=== PATIENT | male | born 1960 | race Caucasian/White ===

== ENCOUNTER 2024-01-14 19:10 | Inpatient (IN) | payer MEDICARE ==
[~2024-01-14] VITALS: Ht 165.1 cm; Wt 89.4 kg
[2024-01-14 19:11] VITALS: BP 148/78; PULSE 130; RESP 22; TEMP 98; O2SAT 96
[2024-01-14 19:30] VITALS: O2SAT 96
[2024-01-14] MEDS ORDERED: cefTRIAXone 1,000 MG VIAL ONE (19:37)
[2024-01-14] MEDS: cefTRIAXone 1,000 MG in DEXT 5% MINI-BAG PLUS 50 ML IV ONE (19:43)
[2024-01-14] MEDS: NACL 0.9% 2,000 ML IV SCH (19:43)
[2024-01-14 20:07] LABS: BASOPHILS % (AUTO) 0.2 % (0.0-2.0); EOSINOPHILS % (AUTO) 0.1 % (0.0-4.0); HEMATOCRIT 36.1 % (36-52); HEMOGLOBIN 12.7 g/dL (12.0-18.0); LYMPHOCYTES # (AUTO) 1.1 K/uL (2.0-11.5); LYMPHOCYTES % (AUTO) 10.3 % (20.5-51.1); MEAN CORPUSCULAR HEMOGLOBIN 29 pg (27-31); MEAN CORPUSCULAR HGB CONC 35 g/dL (33-37); MONOCYTES # (AUTO) 1.2 K/uL (0.8-1.0); MONOCYTES % (AUTO) 11.1 % (1.7-9.3); NEUTROPHILS # (AUTO) 8.3 K/uL (1.8-7.7); NEUTROPHILS % (AUTO) 78.3 % (42.2-75.2); PLATELET COUNT (AUTO) 112 K/uL (140-450); RED CELL DISTRIBUTION WIDTH 13.7 % (11.6-13.7); WHITE BLOOD COUNT (AUTO) 10.6 K/uL (4.8-10.8)
[2024-01-14 20:08] LABS: BILIRUBIN,URINE NEGATIVE (NEGATIVE); BLOOD, URINE 2+ (NEGATIVE); COLOR,URINE YELLOW (YELLOW); LEUKOCYTE ESTERASE ,URINE TRACE (NEGATIVE); NITRITE, URINE NEGATIVE (NEGATIVE); PROTEIN,URINE 1+ (NEGATIVE); UGLUCOSE NEGATIVE (NEGATIVE); UROBILINOGEN,URINE 0.2 EU/dL (0.2 - 1)
[2024-01-14 20:11] LABS: APPEARANCE,URINE SLIGHTLY HAZY (CLEAR)
[2024-01-14 20:18] LABS: WBC,URINE 0-5 /HPF (0-5)
[2024-01-14 20:19] LABS: BACTERIA,URINE 1+ /HPF (None Seen); MUCUS,URINE None Seen /LPF (None Seen); SQUAMOUS EPITHELIAL CELL,UR 0-3 (FEW) /LPF (0-3 (FEW))
[2024-01-14 20:25] LABS: FLU A ANTIGEN negative (NEGATIVE); FLU B ANTIGEN negative (NEGATIVE)
[2024-01-14 20:28] LABS: LACTIC ACID 0.8 mmol/L (0.4-2.0)
[2024-01-14 20:59] LABS: ANION GAP 14.2 (8-16); CALCIUM 7.5 mg/dL (8.5-10.1); CARBON DIOXIDE 19.8 mmol/L (21-32); CREATININE 1.2 mg/dL (0.6-1.3)
[2024-01-14 21:49] VITALS: O2SAT 96
[2024-01-14 23:49] VITALS: O2SAT 96
[2024-01-15] VITALS (10 sets, daily range): BP systolic 124–146; BP diastolic 69–93; PULSE 88–137; RESP 18–20; TEMP 97.1–98.5; O2SAT 95–100
[2024-01-15] MEDS: ALBUTEROL 0.083% 2.5 MG/3 ML NEBU INH ONE (00:46)
[2024-01-15] MEDS: ALBUTEROL SULFATE/IPRATROPIU 3 ML SOL IH ONE (00:46)
[2024-01-15] MEDS ORDERED: HYDROcodone/APAP 5/325 MG 1 TAB TAB PO PRN (01:40)
[2024-01-15] MEDS ORDERED: ACETAMINOPHEN 325 MG TAB PO PRN (01:40)
[2024-01-15] MEDS ORDERED: MORPHINE SULFATE 2 MG/ML SYR IVP PRN (01:40)
[2024-01-15] MEDS ORDERED: AZITHROMYCIN 500 MG INJ VIAL IV ONE (02:12)
[2024-01-15] MEDS: AZITHROMYCIN 500 MG in DEXTROSE 5% 250 ML IV SCH (02:18)
[2024-01-15] MEDS: VERAPAMIL 5 MG/2 ML VIAL IVP ONE (02:29)
[2024-01-15 06:11] LABS: ANION GAP 14.6 (8-16); CREATININE 1.1 mg/dL (0.6-1.3); POTASSIUM 3.6 mmol/L (3.5-5.1)
[2024-01-15] MEDS ORDERED: NACL 3% 500 ML IV ONE (06:35)
[2024-01-15] MEDS: NACL 3% 500 ML IV ONE (07:08)
[2024-01-15] MEDS ORDERED: NACL 3% 500 ML IV SCH ×3 (08:10→21:00)
[2024-01-15 08:28] LABS: BASOPHILS % (AUTO) 0.4 % (0.0-2.0); EOSINOPHILS % (AUTO) 0.1 % (0.0-4.0); HEMATOCRIT 38.9 % (36-52); HEMOGLOBIN 13.7 g/dL (12.0-18.0); LYMPHOCYTES # (AUTO) 0.9 K/uL (2.0-11.5); MEAN CORPUSCULAR HEMOGLOBIN 29 pg (27-31); MEAN CORPUSCULAR HGB CONC 35 g/dL (33-37); MEAN CORPUSCULAR VOLUME 82.3 fL (80-94); MONOCYTES # (AUTO) 1.3 K/uL (0.8-1.0); NEUTROPHILS # (AUTO) 7.9 K/uL (1.8-7.7); NEUTROPHILS % (AUTO) 77.5 % (42.2-75.2); PLATELET COUNT (AUTO) 127 K/uL (140-450); RED BLOOD CELL COUNT(AUTO) 4.72 MIL/uL (4.20-6.10); RED CELL DISTRIBUTION WIDTH 13.2 % (11.6-13.7); WHITE BLOOD COUNT (AUTO) 10.2 K/uL (4.8-10.8)
[2024-01-15 08:42] LABS: CALCIUM 7.4 mg/dL (8.5-10.1); CARBON DIOXIDE 20.9 mmol/L (21-32); CREATININE 1.1 mg/dL (0.6-1.3); POTASSIUM 3.9 mmol/L (3.5-5.1)
[2024-01-15] MEDS: METOPROLOL 5 MG/5 ML VIAL IV SCH (09:40)
[2024-01-15 12:26] LABS: ANION GAP 11.9 (8-16); CALCIUM 7.3 mg/dL (8.5-10.1); CARBON DIOXIDE 21.8 mmol/L (21-32); CREATININE 1.1 mg/dL (0.6-1.3); POTASSIUM 3.7 mmol/L (3.5-5.1)
[2024-01-15] MEDS: METOPROLOL 25 MG TAB PO SCH ×2 (13:52→20:19)
[2024-01-15] MEDS: FUROSEMIDE 40 MG/4 ML VIAL IVP SCH (13:52)
[2024-01-15] MEDS: DIGOXIN 0.25 MG/ML AMP IV SCH ×2 (13:55→18:12)
[2024-01-15 16:43] LABS: ANION GAP 13.5 (8-16); CALCIUM 8.1 mg/dL (8.5-10.1); CARBON DIOXIDE 23.3 mmol/L (21-32); CREATININE 1.1 mg/dL (0.6-1.3); POTASSIUM 3.8 mmol/L (3.5-5.1)
[2024-01-15 20:16] LABS: ANION GAP 14.3 (8-16); CALCIUM 7.9 mg/dL (8.5-10.1); CARBON DIOXIDE 23.3 mmol/L (21-32); CREATININE 1.2 mg/dL (0.6-1.3); POTASSIUM 3.6 mmol/L (3.5-5.1)
[2024-01-15] MEDS: APIXABAN 2.5 MG TAB PO SCH (20:18)
[2024-01-16] VITALS (10 sets, daily range): BP systolic 104–127; BP diastolic 72–84; PULSE 53–104; RESP 17–19; TEMP 97.1–97.6; O2SAT 97–99
[2024-01-16] MEDS: DIGOXIN 0.25 MG/ML AMP IV SCH (00:13)
[2024-01-16 00:28] LABS: ANION GAP 12.5 (8-16); CALCIUM 7.5 mg/dL (8.5-10.1); CARBON DIOXIDE 23.8 mmol/L (21-32); CREATININE 1.1 mg/dL (0.6-1.3); POTASSIUM 3.3 mmol/L (3.5-5.1)
[2024-01-16 04:13] LABS: BASOPHILS % (AUTO) 0.5 % (0.0-2.0); EOSINOPHILS # (AUTO) 0.1 K/uL (0-0.4); EOSINOPHILS % (AUTO) 1.8 % (0.0-4.0); HEMATOCRIT 37.9 % (36-52); HEMOGLOBIN 13.3 g/dL (12.0-18.0); LYMPHOCYTES # (AUTO) 1.4 K/uL (2.0-11.5); LYMPHOCYTES % (AUTO) 19.9 % (20.5-51.1); MEAN CORPUSCULAR HEMOGLOBIN 29 pg (27-31); MEAN CORPUSCULAR HGB CONC 35 g/dL (33-37); MEAN CORPUSCULAR VOLUME 82.2 fL (80-94); MONOCYTES # (AUTO) 1.5 K/uL (0.8-1.0); NEUTROPHILS % (AUTO) 56.9 % (42.2-75.2); PLATELET COUNT (AUTO) 120 K/uL (140-450); RED BLOOD CELL COUNT(AUTO) 4.61 MIL/uL (4.20-6.10); RED CELL DISTRIBUTION WIDTH 13.6 % (11.6-13.7); WHITE BLOOD COUNT (AUTO) 7.1 K/uL (4.8-10.8)
[2024-01-16 04:30] LABS: ANION GAP 8.3 (8-16); CALCIUM 7.8 mg/dL (8.5-10.1); CARBON DIOXIDE 26.3 mmol/L (21-32); CREATININE 1.1 mg/dL (0.6-1.3); POTASSIUM 3.6 mmol/L (3.5-5.1)
[2024-01-16 04:41] LABS: MAGNESIUM 1.7 mg/dL (1.8-2.4); PHOSPHORUS 3.4 mg/dL (2.5-4.9)
[2024-01-16 04:53] LABS: MONOCYTES % (AUTO) 20.9 % (1.7-9.3)
[2024-01-16 09:01] LABS: ANION GAP 13.2 (8-16); CALCIUM 7.9 mg/dL (8.5-10.1); CARBON DIOXIDE 23.4 mmol/L (21-32); CREATININE 1.1 mg/dL (0.6-1.3); POTASSIUM 3.6 mmol/L (3.5-5.1)
[2024-01-16 12:29] LABS: ANION GAP 11.2 (8-16); CALCIUM 7.8 mg/dL (8.5-10.1); CARBON DIOXIDE 26.2 mmol/L (21-32); CREATININE 1.1 mg/dL (0.6-1.3); POTASSIUM 3.4 mmol/L (3.5-5.1)
[2024-01-16] MEDS: MAGNESIUM OXIDE 400 MG TAB PO PRN (13:47)
[2024-01-16 17:03] LABS: ANION GAP 10.9 (8-16); CALCIUM 7.8 mg/dL (8.5-10.1); CARBON DIOXIDE 25.6 mmol/L (21-32); CREATININE 1.2 mg/dL (0.6-1.3); POTASSIUM 3.5 mmol/L (3.5-5.1)
[2024-01-16] MEDS: DIGOXIN 0.25 MG TAB PO SCH (17:34)
[2024-01-16] MEDS: METOPROLOL 50 MG TAB PO SCH (21:00)
[2024-01-16 21:14] LABS: ANION GAP 11.3 (8-16); CALCIUM 7.9 mg/dL (8.5-10.1); CARBON DIOXIDE 25.2 mmol/L (21-32); CREATININE 1.2 mg/dL (0.6-1.3); POTASSIUM 3.5 mmol/L (3.5-5.1)
[2024-01-17] VITALS (11 sets, daily range): BP systolic 107–126; BP diastolic 68–82; PULSE 68–102; RESP 18–20; TEMP 97–97.7; O2SAT 97–99
[2024-01-17 06:48] LABS: HEMOGLOBIN 12.7 g/dL (12.0-18.0); MEAN CORPUSCULAR HEMOGLOBIN 29 pg (27-31); MEAN CORPUSCULAR HGB CONC 35 g/dL (33-37); MEAN CORPUSCULAR VOLUME 82.1 fL (80-94); PLATELET COUNT (AUTO) 149 K/uL (140-450); RED BLOOD CELL COUNT(AUTO) 4.39 MIL/uL (4.20-6.10); RED CELL DISTRIBUTION WIDTH 13.9 % (11.6-13.7)
[2024-01-17 07:04] LABS: ANION GAP 9.8 (8-16); CALCIUM 7.9 mg/dL (8.5-10.1); CARBON DIOXIDE 28.5 mmol/L (21-32); CREATININE 1.1 mg/dL (0.6-1.3); POTASSIUM 3.3 mmol/L (3.5-5.1)
[2024-01-17 08:25] LABS: LYMPHOCYTES % (MANUAL) 22 % (20-46)
[2024-01-17 08:26] LABS: EOSINOPHILS % (MANUAL) 8 % (0-4); MONOCYTES % (MANUAL) 20 % (5-12)
[2024-01-17 08:27] LABS: PLATELET ESTIMATE ADEQUATE
[2024-01-17 08:28] LABS: PLATELET COUNT,MANUAL 149 K/uL (150-450)
[2024-01-17] MEDS: POTASSIUM CHLORIDE 10 MEQ TABER PO PRN (09:25)
[2024-01-17] MEDS: DIGOXIN 0.25 MG TAB PO SCH (09:26)
[2024-01-17] MEDS ORDERED: POTASSIUM CHLORIDE 10 MEQ TABER PO ONE (09:35)
[2024-01-17] MEDS: methIMAzole 5 MG TAB PO SCH (11:50)
[2024-01-18] VITALS: BP 121/71; PULSE 65; PULSE 71; RESP 18; TEMP 96.9; O2SAT 97
[2024-01-18 04:00] VITALS: BP 122/73; PULSE 72; PULSE 82; RESP 18; TEMP 97.2; O2SAT 98
[2024-01-18 07:00] LABS: ANION GAP 9.5 (8-16); CALCIUM 8.3 mg/dL (8.5-10.1); CARBON DIOXIDE 29.3 mmol/L (21-32); POTASSIUM 3.8 mmol/L (3.5-5.1)
[2024-01-18 08:00] VITALS: BP 127/77; PULSE 76; PULSE 79; RESP 17; TEMP 97.4; O2SAT 97
[2024-01-18] MEDS ORDERED: TAP5 PO ×2 (09:51→15:12)
[2024-01-18] MEDS ORDERED: DIGO-81 PO (09:51)
[2024-01-18 11:01] VITALS: BP 127/77; PULSE 76; RESP 17; TEMP 97.4
[2024-01-18 11:34] VITALS: O2SAT 97
[2024-01-18 12:00] VITALS: BP 112/70; PULSE 63; PULSE 82; RESP 18; TEMP 98; O2SAT 96
[2024-01-18] MEDS ORDERED: APIX2.5 PO (12:40)
[2024-01-18] MEDS ORDERED: METO50TA99 PO (12:40)
[2024-01-18] MEDS ORDERED: DIGO-119 PO (15:13)
== END 2024-01-18 16:30 | disposition home or self-care (01) | DRG 871 ==
LOC: MED 20:23 → MTU 01-15 01:41
PROVIDERS: ADMIT Student in an Organized Health Care Education/Training Program; ATTEND Student in an Organized Health Care Education/Training Program
DX: A41.9 Sepsis, unspecified organism (principal); I50.33 Acute on chronic diastolic (congestive) heart failure; J15.9 Unspecified bacterial pneumonia; J96.00 Acute respiratory failure, unspecified whether with hypoxia or hypercapnia; I69.354 Hemiplegia and hemiparesis following cerebral infarction affecting left non-dominant side; J81.1 Chronic pulmonary edema; E22.2 Syndrome of inappropriate secretion of antidiuretic hormone; Z20.822 Contact with and (suspected) exposure to COVID-19; I48.91 Unspecified atrial fibrillation; E78.5 Hyperlipidemia, unspecified; I11.0 Hypertensive heart disease with heart failure; E05.90 Thyrotoxicosis, unspecified without thyrotoxic crisis or storm; Z90.49 Acquired absence of other specified parts of digestive tract
CPT/HCPCS: 36415; 71045; 80048; 81001; 82436; 82570; 83605; 83735; 83880; 83935; 84100; 84300; 84439; 84443; 84484; 85025; 87040; 87081; 87086; 93005; 94640; 94761; 96365; 96375; 99285; J0456; J0696; J1160; J1940; J3490; J7060; J7613; Q0092